=== PATIENT | female | born 1985 | race Caucasian/White ===

== ENCOUNTER 2016-10-16 12:03 | Inpatient (IN) | payer OTHER ==
[~2016-10-16] VITALS: Ht 172.7 cm; Wt 80.7 kg
[2016-10-16 13:00] VITALS: BP 119/65
[2016-10-16] MEDS ORDERED: CLINDAMYCIN HC300 MG PO (13:45)
[2016-10-16 14:45] LABS: BASO # 0.1 10*3/uL (0.0-0.1); BASO % 0.7 % (0.0-1.0); EOS # 0.2 10*3/uL (0.0-0.4); EOS % 2.4 % (1.0-4.0); HEMATOCRIT 43.7 % (37.0-47.0); IG # 0.1 10*3/uL (0.0-0.1); LYMPH # 1.6 10*3/uL (1.3-4.4); LYMPH % 22.4 % (27.0-41.0); MEAN CELL VOLUME 91.8 fl (81.0-99.0); MEAN CORPUSCULAR HGB 29.4 pg (27.0-31.0); MEAN PLATELET VOLUME 9.2 fl (9.6-12.3); MONO # 0.4 10*3/uL (0.1-1.0); MONO % 5.5 % (3.0-9.0); NEUT # 4.7 10*3/uL (2.3-7.9); NEUT % 68.3 % (47.0-73.0); PLATELET COUNT AUTOMATED 216 10*3/uL (130-400); RED BLOOD COUNT 4.76 10*6/uL (4.10-5.10); RED CELL DISTRI WIDTH 12.6 % (0-14.5)
[2016-10-16 14:54] LABS: INTERNATIONAL NORM RATIO 0.9 (2.0-3.5); PROTHROMBIN TIME 9.6 SECONDS (9.0-12.4)
[2016-10-16 15:01] LABS: ALBUMIN 3.1 gm/dl (3.1-4.5); ALKALINE PHOSPHATASE 63 U/L (45-117); BILIRUBIN, TOTAL 0.3 mg/dl (0.2-1.0); BUN 12 mg/dl (7-24); CARBON DIOXIDE 29 mmol/L (21-32); CHLORIDE 103 mmol/L (98-107); EST GLOM FILT AFRICAN AMERICAN > 60 ml/min; GLUCOSE 94 mg/dL (65-99); POTASSIUM 4.5 mmol/L (3.5-5.1); SGOT/AST 85 IU/L (3-35); SGPT/ALT 143 U/L (12-78); SODIUM 137 mmol/L (136-145); TOTAL PROTEIN 7.2 gm/dL (6.4-8.2)
[2016-10-16 15:07] LABS: BILIRUBIN NEGATIVE (NEGATIVE); BLOOD NEGATIVE (NEGATIVE); CLARITY CLOUDY (CLEAR); COLOR YELLOW (YELLOW); GLUCOSE NEGATIVE (NEGATIVE); KETONE NEGATIVE (NEGATIVE); LEUKO ESTERASE NEGATIVE (NEGATIVE); NITRITE NEGATIVE (NEGATIVE); PH 7.5 (5.0-9.0); PROTEIN NEGATIVE (NEGATIVE)
[2016-10-16 15:09] LABS: URINE AMPHETAMINES < 1000 (1000ng/ml); URINE BARBITURATES < 200 (200ng/ml); URINE COCAINE > 300 (300ng/ml)
[2016-10-16 15:23] LABS: BACTERIA 4+; URINE REFLEX COMMENT YES (NO)
[2016-10-16 16:00] VITALS: BP 134/68
[2016-10-16 20:00] VITALS: BP 102/56
[2016-10-17] VITALS: BP 105/58
[2016-10-17 04:00] VITALS: BP 102/67
[2016-10-17 08:00] VITALS: BP 90/42
[2016-10-17 12:00] VITALS: BP 122/57
[2016-10-18 11:07] LABS: HEPATITIS C VIRUS ANTIBODY >11.0 s/co (0.0-0.9)
== END 2016-10-17 15:49 | disposition left against medical advice (07) | DRG 894 ==
LOC: 4E 12:03
PROVIDERS: Hospitalist; Internal Medicine
DX: F11.23 Opioid dependence with withdrawal (principal); E44.0 Moderate protein-calorie malnutrition; A59.9 Trichomoniasis, unspecified; F12.90 Cannabis use, unspecified, uncomplicated; F17.210 Nicotine dependence, cigarettes, uncomplicated; F14.10 Cocaine abuse, uncomplicated; K04.7 Periapical abscess without sinus; Z83.3 Family history of diabetes mellitus; R74.0 Nonspecific elevation of levels of transaminase and lactic acid dehydrogenase [LDH]; Z68.27 Body mass index [BMI] 27.0-27.9, adult; Z98.51 Tubal ligation status